=== PATIENT | female | born 1970 | race Caucasian/White ===

== ENCOUNTER 2018-10-11 03:51 | Inpatient (IN) | payer BC ==
[~2018-10-11] VITALS: Ht 165.1 cm; Wt 66.2 kg
[~2018-10-11 03:51] MED LIST: ADVAIR HFA 230M12 GM INH; ATROVENT HFA14 GM INH; DUONEB 2.5-0.5 M3 ML INH; IBUPROFEN 800800 MG PO; LATUDA80 MG PO; LEVAQUIN 750 M750 MG PO; PREDNISONE 10 M10 MG PO; PROVENTIL HFA6.7 G1 INH; ROBAXIN 750 MG750 MG PO; SYMBICORT80 MCG/4.1 INH; VENTOLIN HFA 1818 GM INH; XANAX 0.5 MG0.5 MG PO
[2018-10-11 03:58] VITALS: BP 168/99
[2018-10-11] MEDS ORDERED: PROAIR HFA8.5 GM INH (04:03)
[2018-10-11 04:25] LABS: ABSOLUTE BASOPHILS 0.1 thou/uL (0.0-0.2); ABSOLUTE EOSINOPHILS 0.7 thou/uL (0.0-0.7); ABSOLUTE LYMPHOCYTES 2.4 thou/uL (0.8-5.3); BASOPHILS 0.6 %; EOSINOPHILS 5.4 %; HEMATOCRIT 40.4 % (37.0-47.0); HEMOGLOBIN 13.7 gm/dL (12.0-15.0); LYMPHOCYTES 18.3 %; MCH 31.3 pg (26.0-34.0); MCHC 33.9 g/dL (28.0-37.0); MCV 92.3 fL (80.0-100.0); MONOCYTES 7.5 %; MPV 7.5 fl. (7.2-11.1); NUCLEATED RBCS 0 /100WBC; PLATELET COUNT* 289 thou/uL (150-400); POLYS 68.2 %; RBC 4.38 mil/uL (4.20-5.00); RDW-CV 13.7 % (10.5-14.5); WBC 13.2 thou/uL (4.0-11.0)
[2018-10-11 04:36] LABS: CALCIUM 9.2 mg/dL (8.5-10.1); POTASSIUM 4.2 mmol/L (3.5-5.1)
[2018-10-11 04:46] LABS: ALBUMIN 3.9 g/dL (3.4-5.0); TOTAL BILIRUBIN 0.3 mg/dL (<0.1-1.0); TOTAL PROTEIN 7.3 g/dL (6.4-8.2)
[2018-10-11 07:40] LABS: INFLUENZA A ANTIGEN None Detected (None Detect); INFLUENZA B ANTIGEN None Detected (None Detect)
[2018-10-11 09:00] VITALS: BP 138/87
[2018-10-11 15:04] VITALS: BP 129/88
[2018-10-11 15:35] VITALS: BP 117/70
[2018-10-11 20:00] VITALS: BP 121/74
[2018-10-12 00:05] VITALS: BP 145/99
[2018-10-12 04:17] LABS: HEMATOCRIT 37.2 % (37.0-47.0); HEMOGLOBIN 12.5 gm/dL (12.0-15.0); MCH 31.3 pg (26.0-34.0); MCHC 33.5 g/dL (28.0-37.0); MCV 93.5 fL (80.0-100.0); MPV 7.7 fl. (7.2-11.1); NUCLEATED RBCS 0 /100WBC; PLATELET COUNT* 282 thou/uL (150-400); RBC 3.98 mil/uL (4.20-5.00); WBC 9.9 thou/uL (4.0-11.0)
[2018-10-12 04:30] VITALS: BP 136/79
[2018-10-12 04:34] LABS: CALCIUM 9.2 mg/dL (8.5-10.1); CREATININE 0.8 mg/dL (0.6-1.3); POTASSIUM 4.5 mmol/L (3.5-5.1)
[2018-10-12 07:30] LABS: ABSOLUTE LYMPHOCYTES 1.1 thou/uL (0.8-5.3); ABSOLUTE MONOCYTES 0.7 thou/uL (0.0-1.2); ABSOLUTE NEUTROPHILS 8.1 thou/uL (1.6-8.1); PLATELET ESTIMATE ADEQUATE
[2018-10-12 08:00] VITALS: BP 133/88
[2018-10-12] MEDS ORDERED: VENTOLIN HFA 1818 GM INH (09:39)
[2018-10-12] MEDS ORDERED: IPRAT-ALBUT 0.5-3 ML INH (09:41)
[2018-10-12] MEDS ORDERED: PREDNISONE 10 M10 MG PO (09:45)
[2018-10-12] MEDS ORDERED: CEFDINIR300 MG PO (09:46)
[2018-10-12] MEDS ORDERED: PROTONIX40 M1 PO (09:47)
[2018-10-12 09:50] VITALS: BP 133/88
== END 2018-10-12 10:31 | disposition home or self-care (01) | DRG 193 ==
LOC: M.ERS 03:51 → M.TBA-ER 05:41 → M.3W 15:23
PROVIDERS: Emergency Medicine; Internal Medicine; ADMIT Internal Medicine
DX: J18.9 Pneumonia, unspecified organism (principal); J96.01 Acute respiratory failure with hypoxia; G92 Toxic encephalopathy; J45.901 Unspecified asthma with (acute) exacerbation; J44.1 Chronic obstructive pulmonary disease with (acute) exacerbation; J44.0 Chronic obstructive pulmonary disease with (acute) lower respiratory infection; J20.9 Acute bronchitis, unspecified; F31.9 Bipolar disorder, unspecified; F17.210 Nicotine dependence, cigarettes, uncomplicated; Z28.89 Immunization not carried out for other reason; Z90.710 Acquired absence of both cervix and uterus; Z82.5 Family history of asthma and other chronic lower respiratory diseases

== ENCOUNTER 2018-11-10 08:34 | Inpatient (IN) | payer BC ==
[2018-11-10] VITALS (14 sets, daily range): BP systolic 112–144; BP diastolic 80–110
[~2018-11-10] VITALS: Ht 152.4 cm; Wt 73.0 kg
[~2018-11-10 08:34] MED LIST changes: +CEFDINIR300 MG PO; +IPRAT-ALBUT 0.5-3 ML INH; +PROAIR HFA8.5 GM INH; +PROTONIX40 M1 PO
[2018-11-10 09:48] LABS: BE -4.8 mmol/L (-2 to +3); PCO2 41.9 mmHg (35.0-45.0); pH 7.319 (7.340-7.450)
[2018-11-10 09:53] LABS: ABSOLUTE BASOPHILS 0.1 thou/uL (0.0-0.2); ABSOLUTE EOSINOPHILS 0.6 thou/uL (0.0-0.7); ABSOLUTE LYMPHOCYTES 2.2 thou/uL (0.8-5.3); ABSOLUTE MONOCYTES 0.5 thou/uL (0.0-1.2); ABSOLUTE NEUTROPHILS 6.3 thou/uL (1.6-8.1); BASOPHILS 1.1 %; EOSINOPHILS 6.5 %; HEMOGLOBIN 13.1 gm/dL (12.0-15.0); LYMPHOCYTES 22.6 %; MCH 31.6 pg (26.0-34.0); MCHC 33.5 g/dL (28.0-37.0); MCV 94.4 fL (80.0-100.0); MONOCYTES 5.6 %; MPV 7.6 fl. (7.2-11.1); NUCLEATED RBCS 0 /100WBC; PLATELET COUNT* 321 thou/uL (150-400); POLYS 64.2 %; RBC 4.14 mil/uL (4.20-5.00); RDW-CV 14.1 % (10.5-14.5); WBC 9.7 thou/uL (4.0-11.0)
[2018-11-10 10:00] LABS: APTT 27.9 Seconds (25.0-31.3); PROTIME 10.4 Seconds (9.20-11.50)
[2018-11-10 10:01] LABS: ANION GAP 7 mmol/L (7-16); BUN 13 mg/dL (7-18); CHLORIDE 108 mmol/L (98-107); CO2 26 mmol/L (21-32); CREATININE 0.9 mg/dL (0.6-1.3); GLUCOSE 205 mg/dL (70-99); POTASSIUM 3.9 mmol/L (3.5-5.1); SODIUM 141 mmol/L (136-145)
[2018-11-10 10:16] LABS: ALBUMIN 3.3 g/dL (3.4-5.0); ALKALINE PHOSPHATASE 87 U/L (46-116); LIPASE 62 U/L (73-393); MAGNESIUM 1.9 mg/dL (1.8-2.4); NT-PRO BRAIN NAT PEPTIDE 145 pg/mL (<300); SGOT 36 U/L (15-37); SGPT 26 U/L (30-65); TOTAL BILIRUBIN 0.3 mg/dL (<0.1-1.0); TOTAL PROTEIN 6.3 g/dL (6.4-8.2); TROPONIN-I LEVEL <0.06 ng/mL (<0.06)
--- NOTE | 2018-11-10 10:24 | NUR ---
PROPOFOL TITRATED FROM 10 MG/HR TO 20 MG/HR PER DR ORDERS. CURRENT VITAL SIGNS ARE: HR 142, BP 125/96, O2 SAT 98%.
--- NOTE | 2018-11-10 11:47 | NUR ---
PT WAS TAKEN TO CAT SCAN WITH RN AND RT. PT WAS TAKEN STRAIGHT TO ICU FROM CT SCAN DUE TO RT BEING AVAILABLE AND PRESENT TO HELP TRANSPORT VENTILATOR. BEDSIDE REPORT WAS GIVEN TO TRELL. PT'S BELONGINGS, INCLUDING JEWELRY AND DENTURES WERE TAKEN TO THE PATIENT.
[2018-11-10 15:51] LABS: BE -4.6 mmol/L (-2 to +3); PCO2 42.3 mmHg (35.0-45.0); PO2 105.3 mmHg (75.0-100.0)
--- NOTE | 2018-11-10 16:13 | EKG ---
[place] [address] ELECTROCARDIOGRAM REPORT Name: ONEAL SPENCER Room: [address] ADM IN .R.#: [id number] Admission: 11/10/18 Attend Phys: Amaya Garcia MD Discharge: Date of : 72 Report #: [id number] THIS REPORT FOR: //name// [facility] ED Test Date: 2018-11-10 Test Time: 09:28:00 Pat Name: ONEAL SPENCER Department: Room: [facility] Gender: F Flat Sheet Maker: MS : 1970 Requested By: James Everett Order Number: [id number] MD: Mikael Peralta Measurements Intervals [place] Rate: 136 P: 76 WV: 74 QRS: 49 QRSD: 83 T: 118 QT: 320 QTc: 482 Interpretive Statements Sinus tachycardia Anterior infarct, old Nonspecific T abnormalities, lateral leads No previous ECG available for comparison Electronically Signed On 11-10-2018 16:13:05 WASHING MACHINE LOADER AND PULLER by Mikael Peralta [email or web address] <ELECTRONICALLY SIGNED> By: Mikael Peralta MD, [facility] 11/10/18 1613 7 7 Mikael Peralta MD, FAC /EPI
--- NOTE | 2018-11-10 16:17 | NUR ---
PATIENT ADMITTED TO THE UNIT AT 1145. ARRIVED SEDATED, INTUBATED, AND IN BILATERAL SOFT WRIST RESTRAINTS. PULMONARY HAD ALREADY SEEN PATIENT AND ORDERED REPEAT ABG AT 1500. PATIENT'S AND TWO SONS IN TO SEE PATIENT. ALL QUESTIONS ANSWERED. LEFT SHORTLY AFTER ARRIVAL AND STATED THEY WOULD BE BACK TOMORROW. REPORT GIVEN TO MARE ZAVALETA AT THIS TIME.
--- NOTE | 2018-11-10 18:46 | NUR ---
ASSUMED PATIENT CARE AT 1600. PT SEDATED APPROPRIATLY ON PROPOFOL. VITAL SIGNS STABLE. HAS BEEN UPDATED.
[2018-11-11] VITALS (26 sets, daily range): BP systolic 113–158; BP diastolic 59–121
[2018-11-11 05:41] LABS: HEMATOCRIT 36.9 % (37.0-47.0); HEMOGLOBIN 12.7 gm/dL (12.0-15.0); MCH 31.7 pg (26.0-34.0); MCHC 34.4 g/dL (28.0-37.0); MCV 92.4 fL (80.0-100.0); MPV 7.8 fl. (7.2-11.1); RBC 3.99 mil/uL (4.20-5.00); RDW-CV 14.1 % (10.5-14.5); WBC 9.3 thou/uL (4.0-11.0)
[2018-11-11 06:19] LABS: ALBUMIN 3.2 g/dL (3.4-5.0); CALCIUM 8.6 mg/dL (8.5-10.1); CREATININE 0.9 mg/dL (0.6-1.3); MAGNESIUM 1.7 mg/dL (1.8-2.4); POTASSIUM 4.2 mmol/L (3.5-5.1); TOTAL BILIRUBIN 0.4 mg/dL (<0.1-1.0); TOTAL PROTEIN 6.3 g/dL (6.4-8.2)
[2018-11-11 06:29] LABS: BE -2.9 mmol/L (-2 to +3); PCO2 31.6 mmHg (35.0-45.0); PO2 93.6 mmHg (75.0-100.0); pH 7.427 (7.340-7.450)
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
--- NOTE | 2018-11-11 09:41 | NUR ---
Pt lightly sedated on Propofol; however, pt tends to sit up or contract when coughing. Pt calm with other care and activiities. BP 140s-150s/90s-110s. HR 120s. Paged Dr. Arreola, received orders to reduce rate of IVF from 150 to 75 ml/h. BP improved this am. Propofol at max of 80 mcg/kg/min. Will continue to monitor.
--- NOTE | 2018-11-11 10:40 | NUR ---
PT JUST EXTUBATED, NO FAMILY HERE AT THIS TIME. WILL ASSESS AT LATER TIME.
--- NOTE | 2018-11-11 14:52 | 2DMMODE ---
[place] [address] 2 D/M-MODE ECHOCARDIOGRAM Name: ONEAL SPENCER Room: [address] ADM IN [facility]#: [id number] Admission: 11/10/18 Attend Phys: Amaya Garcia, Discharge: Date of : 72 Date of Service: 11/11/18 1452 Report #: [id number] THIS REPORT FOR: //name// APPROVED REPORT Study performed: 11/11/2018 10:09:39 EXAM: Comprehensive 2D, Doppler, and color-flow Echocardiogram Patient Location: In-Patient Room #: 003 Status: routine BSA: 1.81 HR: 117 bpm BP: 149/104 mmHg Rhythm: NSR Other Information Study Quality: Good Indications Dyspnea 2D Dimensions IVSd: 8.31 (7-11mm) LVOT Diam: 25.94 (18-24mm) LVDd: 55.25 mm PWd: 10.76 (7-11mm) Ascending Ao: 30.90 (22-36mm) LVDs: 44.86 (25-40mm) Volumes Left Atrial Volume (Systole) LA ESV Index: 30.10 mL/m2 Aortic Valve AoV Peak Saeed.: 1.26 m/s AO Peak Gr.: 6.34 mmHg LVOT Max P.24 mmHg AO Mean Gr.: 3.45 mmHg LVOT Mean P.66 mmHg LVOT Max V: 0.90 m/s AO V2 VTI: 19.09 cm LVOT Mean V: 0.60 m/s CONRAD (VTI): 4.86 cm2 LVOT V1 VTI: 17.56 cm Pulmonary Valve PV Peak Saeed.: 0.85 m/s PV Peak Gr.: 2.89 mmHg Tricuspid Valve RAP Estimate: 5.00 [place] [address] 2 D/M-MODE ECHOCARDIOGRAM Name: ONEAL SPENCER ERYN Room: [address] IN .R.#: [id number] Admission: 11/10/18 Attend Phys: Amaya Garcia, Discharge: Date of : 72 Date of Service: 11/11/18 1452 Report #: [id number] TR Peak Gr.: 27.71 mmHg RVSP: 32.00 mmHg PA Pressure: 32.00 mmHg Left Ventricle The left ventricle is normal size. Regional wall motion abnormalities are noted.The entire anterior wall is moderately hypokinetic, involving the apex which is severly hypokinetic.Distal inferior wall is severely hypokinetic . There is normal left ventricular wall thickness. Left ventricular systolic function is moderately decreased. LVEF is 35-40%. The left ventricular diastolic function is normal. Right Ventricle The right ventricle is normal size. The right ventricular systolic function is normal. Atria The left atrium size is normal. The right atrium size is normal. Aortic Valve The aortic valve is normal in structure. No aortic regurgitation is present. There is no aortic valvular stenosis. Mitral Valve The mitral valve is normal in structure. Trace mitral regurgitation. No evidence of mitral valve stenosis. Tricuspid Valve The tricuspid valve is normal in structure. Trace tricuspid regurgitation. Mild pulmonary hypertension. Pulmonic Valve The pulmonary valve is normal in structure. Trace pulmonic regurgitation. Great Vessels The aortic root is normal in size. IVC is normal in size and collapses >50% with inspiration. Pericardium There is no pericardial effusion. <Conclusion> LVEF is 35-40%. Regional wall motion abnormalities are noted.[place] [address] 2 D/M-MODE ECHOCARDIOGRAM Name: ONEAL SPENCER Room: [address] IN [facility]#: [id number] Admission: 11/10/18 Attend Phys: Amaya Garcia, Discharge: Date of : 72 Date of Service: 11/11/18 1452 Report #: [id number] is moderately hypokinetic, involving the apex which is severely hypokinetic.Distal inferior wall is hypokinetic. There is no aortic valvular stenosis. No aortic regurgitation is present. Trace tricuspid regurgitation. Mild pulmonary hypertension. Trace mitral regurgitation. No evidence of mitral valve stenosis. <ELECTRONICALLY SIGNED> By: Noel Trinidad MD, FACC 11/11/18 145 51 51 Noel Trinidad MD, FACC /INF
[2018-11-11 14:58] LABS: BE 2.8 mmol/L (-2 to +3); PCO2 34.4 mmHg (35.0-45.0); pH 7.493 (7.340-7.450)
[2018-11-11 15:01] LABS: PO2 57.3 mmHg (75.0-100.0)
--- NOTE | 2018-11-11 15:01 | NUR ---
O2 TITRATED TO 4L NC FOR CRITICALLY LOW PO2 57.3
--- NOTE | 2018-11-11 17:01 | NUR ---
PATIENT HAS REMAINED FINE SINCE EXTUBATION. PT IS ALERT AND ORIENTED. PT VITALS ARE STABLE. PT REMAINS ON 4 LITERS NASAL CANULA. LOW GRADE FEVERS. PT TURNS SELF IN BED. PT WAS STARTED ON CLEAR LIQUIDS AND IS TOLERATING. PT REPORTS PAIN IN HEAD AND CHEST. PARTIALLY RELIEVED WITH PRN TYLENOL. PT DOES NOT WANT NARCOTICS BECAUSE SHE IS A MEMBER OF [employer]. PT'S WAS PRESENT AND UPDATED ON PLAN OF CARE AND DENIES QUESTIONS.
[2018-11-12] VITALS (12 sets, daily range): BP systolic 115–140; BP diastolic 69–91
[2018-11-12 05:07] LABS: HEMATOCRIT 34.2 % (37.0-47.0); HEMOGLOBIN 11.6 gm/dL (12.0-15.0); MCH 31.4 pg (26.0-34.0); MCV 92.4 fL (80.0-100.0); RBC 3.7 mil/uL (4.20-5.00); WBC 11.1 thou/uL (4.0-11.0)
[2018-11-12 05:19] LABS: CALCIUM 8.9 mg/dL (8.5-10.1); CREATININE 0.7 mg/dL (0.6-1.3); MAGNESIUM 2.1 mg/dL (1.8-2.4); POTASSIUM 3.6 mmol/L (3.5-5.1)
--- NOTE | 2018-11-12 06:18 | NUR ---
Pt very pleasant and conversational, including some phone conversations with family members last night. States she slept well between MN and 0400. Medicated with Tylenol this am per pt request for pain with breathing and coughing to "lungs and abdomen." Reports adequate relief from pain afterwards. T max 99.9 overnight via roman temp probe, but down to 98.1 prior to having roman dc'd at 0610. VSS. Breath snds diminshed with some wheezing. Remains on 4L O2 per NC. Will continue to monitor.
[2018-11-12 09:17] LABS: CHOLESTEROL 213 mg/dL (<200); HDL CHOLESTEROL 93 mg/dL (>40); LDL CHOLESTEROL 104 mg/dL (<100); TC:HDL 2.3 Ratio (Not establshd); TRIGLYCERIDE 80 mg/dL (<150); VLDL 16 mg/dL (<40)
[2018-11-12 09:18] LABS: SERUM ASSESSMENT Clear
--- NOTE | 2018-11-12 10:40 | NUR ---
SPOKE WITH PT. SHE LIVES WITH HER AND HAS BEEN ACTIVE AND INDEP. SHE HAS A NEBULIZER AT HOME BUT IT IS ABOUT 8 YEARS OLD AND ISN'T WORKING WELL ANY LONGER. SHE HAS ALREADY CALLED HER INSURANCE COMPANY AND THEY WILL COVER A NEW NEBULIZER. NURSING NOTIFIED AND THEY WILL GET ORDER FROM DOCTOR FOR NEBULIZER. CASE MGT CAN ARRANGE FOR NEW NEBULIZER ONCE THE ORDER IS OBTAINED. PT DENIES ANY DISCHARGE NEEDS. DISCUSSED ROLE OF CASE MGT, WILL CONTINUE TO FOLLOW.
--- NOTE | 2018-11-12 10:56 | NUR ---
Nutrition: Pt has a TF regimen ordered, but she hwas extubated yday. Eating Heart Healthy diet today. Defer further assessment at this time.
[2018-11-12 12:09] LABS: APTT 24.5 Seconds (25.0-31.3); INR 1.1; PROTIME 10.9 Seconds (9.20-11.50)
--- NOTE | 2018-11-12 15:50 | NUR ---
PATIENT CARE ASSUMED AT 0700. PATIENT REMAINED AOX4, PLEASANT, COOPERATIVE. PATIENT COMPLAINTS OF CHEST PRESSURE RATED 6/10 RELIEVED TO 3/10 WITH PRN TYLENOL. CARDIOLOGY ADJUSTED MEDICATIONS, STARTED ON HEPARIN GTT PER CARDIOLOGY. NEXT APPT SCHEDULED AT 1830. TRACING NSR ON OCEANOGRAPHER GEOLOGICAL WITH ST DEPRESSION. EKG COMPLETED TODAY. PATIENT WILL HAVE HEART CATH TOMORROW. HOSPITALIST DOWNGRADED TO TELE STATUS. SPOKE WITH NNAMDI THOMPSON IN CARDIOLOGY AND CLEARED TO DOWNGRADE. DR DESAI IN THE ROOM DURING TRANSFER TO ASSESS PATIENT. TAKEN UP BY WHEELCHAIR AT 1552. REPORT GIVEN TO MARE JACINTO. ALL QUESTIONS ANSWERED. PATIENT NOTIFIED OF TRANSFER.
--- NOTE | 2018-11-12 16:02 | EKG ---
[place] [address] ELECTROCARDIOGRAM REPORT Name: ONEAL SPENCER ERYN Room: [address] ADM IN M.R.#: [id number] Admission: 11/10/18 Attend Phys: Amaya Garcia MD Discharge: Date of : 72 Report #: [id number] THIS REPORT FOR: //name// [facility] Test Date: 2018-11-12 Test Time: 10:46:44 Pat Name: ONEAL SPENCER Department: Room: [address] Gender: F Staff Respiratory Therapist: : 1970 Requested By: Shannon Jarrell Order Number: [id number] Reading MD: Wilder Mattson Measurements Intervals [place] Rate: 89 P: 65 GA: 135 QRS: 44 QRSD: 86 T: 201 QT: 476 QTc: 580 Interpretive Statements Sinus rhythm Probable left atrial enlargement Repol abnrm, global ischemia, diffuse leads Prolonged QT interval Compared to ECG 11/10/2018 09:28:00 Early repolarization now present Possible ischemia now present Prolonged QT interval now present Sinus tachycardia no longer present Myocardial infarct finding no longer present Electronically Signed On 11-12-2018 16:02:38 ROLLED SEAT TRIMMER by Wilder Mattson [email or web address] <ELECTRONICALLY SIGNED> By: Wilder Mattson MD, [facility] 11/12/18 1602 1046 1046 Wilder Mattson MD, [facility] /EPI
--- NOTE | 2018-11-12 17:02 | NUR ---
PT TRANSFERED FROM ICU THIS AFTERNOON. REPORT RECEIVED FROM LAWSON GARVEY. PT IS AOX4 SR ON COATINGS INSPECTOR. ON 4 L NC AND SATURATION IS 93%. RIGHT JUGULAR LINE IS PATENT. PT IS UP AD JOE. VSS. COARSE LUNGS SOUNDS. HEPARIN DRIP AT 8.75 PER HOUR. COATINGS INSPECTOR ON, TRACING SR WITH ST DEPRESSION. CARDIAC DOCTOR TO SEE PT. DINER PROVIDED. PT TO BE NPO AFTER MIDNIGHT.CALL LIGHT AT REACH. WILL CONTINUE TO MONITOR PT
--- NOTE | 2018-11-12 18:00 | NUR ---
PT HR WAS IN THE 160S AT AROUND 1730. PT DENIES ANY HEART RACING SENSATION. EKG PERFORMED. EKG READ SINUS RYTHM. FR 82. SEE CHART. PT STABLE. PT CONSUMED DINNER. HEPARIN DRIP STILL INFUSING. WILL CONTINUE TO MONITOR.
[2018-11-12 23:07] LABS: GLYCOHEMOGLOBIN (HGB A1C) 5.8 % (4.8-5.6)
[2018-11-13] VITALS (14 sets, daily range): BP systolic 111–136; BP diastolic 66–94
[2018-11-13 02:55] LABS: HEMATOCRIT 34.7 % (37.0-47.0); HEMOGLOBIN 11.7 gm/dL (12.0-15.0); MCH 31.4 pg (26.0-34.0); MCHC 33.8 g/dL (28.0-37.0); MCV 92.8 fL (80.0-100.0); MPV 7.7 fl. (7.2-11.1); RBC 3.74 mil/uL (4.20-5.00); RDW-CV 13.9 % (10.5-14.5); WBC 11.5 thou/uL (4.0-11.0)
[2018-11-13 03:08] LABS: CALCIUM 9.2 mg/dL (8.5-10.1); CREATININE 0.8 mg/dL (0.6-1.3); POTASSIUM 3.6 mmol/L (3.5-5.1)
--- NOTE | 2018-11-13 05:48 | NUR ---
ASSUMED PT CARE AT 1930. PT AWAKE AND ORIENTED X 4. VSS ON 4L OF 02. DENIES ANY CHEST PAIN. TEXTILE SCRAP SALVAGER IN PLACE TRACING SR WITH ST SEGMENT DEPRESSIONS. STILL ON HEPARIN DRIP. CALL LIGHT WITHIN REACH. HOURLY ROUNDING DONE FOR PT SAFETY.
--- NOTE | 2018-11-13 10:10 | NUR ---
ASSUMED PT CARE REPORT RECEIVED FROM NURSE PT IS AOX4 NO PAIN. VSS. SR ON THE CARDAIC MONITOR. IV FLUID INFUSING IN R JUGULAR. HEPARIN DRIP AT 11.67 PER HOUR. NEXT APTT TO BE DRAWNED THIS AM. AWAITNG FOR LAB RESULT. CONSENT SIGNED FOR CARDIAC CATRH SCHEDULED AT 1200/ PT IS TAKING A BED BATH AT THIS TIME. WILL CONTINUE TO MONITOR PT.,
--- NOTE | 2018-11-13 14:21 | NUR ---
ASSUMED PT CARE REPORT RECEIVED FROM NURSE PT IS AOX4 SR ON DATA INTEGRATION DEVELOPER, ON 2 L NC AND BREATHING REGULARLY. LUNG SOUNDS COARSE . PT NPO FOR CARDIAC CATH TODAY. PT LEFT FLOOR FOR CARDIAC CATH AT 1400 ACCOMPANIED BY DATA ENTRY MACHINE OPERATOR NURSE. ON 2 L NC, NEW HEPARIN BAG STARTED AFTER RESULT OF APTT. SEE HEPARIN SHEET IN CHART. PT DONE WITH CARDIAC CATH AT 1425. PT TO COME BACK ON FLOOR SOON WILL CONTINUE TO MONITOR
--- NOTE | 2018-11-13 15:29 | EKG ---
[place] [address] ELECTROCARDIOGRAM REPORT Name: JOSIAHMAKAYLAONEAL ERYN Room: [address] ADM IN M.R.#: [id number] Admission: 11/10/18 Attend Phys: Amaya Garcia MD Discharge: Date of : 72 Report #: [id number] THIS REPORT FOR: //name// [facility] Test Date: 2018-11-12 Test Time: 17:27:15 Pat Name: ONEAL SPENCER Department: Room: [address] Gender: F Parking Technician: : 1970 Requested By: Amaya Garcia Order Number: [id number] Reading MD: Wilder Mattson Measurements Intervals [place] Rate: 82 P: 71 [place]: 128 QRS: 53 QRSD: 85 T: 189 QT: 487 QTc: 569 Interpretive Statements Sinus rhythm LAE, consider biatrial enlargement LVH w/ repol abnormalities, possible ischemia Minimal ST elevation, inferior leads Prolonged QT interval Compared to ECG 11/12/2018 10:46:44 ST (T wave) deviation now present Possible ischemia still present Electronically Signed On 11-13-2018 15:29:40 PICTURE FRAMER by Wilder Mattson [email or web address] <ELECTRONICALLY SIGNED> By: Wilder Mattson MD, [facility] 11/13/18 1529 1727 1727 Wilder Mattson MD, [facility] /EPI
--- NOTE | 2018-11-13 16:26 | NUR ---
PT BACK FROM CARDIAC CATH AT 1430. IV FLUID AT 70 PER HOUR. HEPARIN DRIP STOPPED ORDERED. PT UP AD JOE. R RADIAL AREA IS INTACT NO BLEEDING. VS MONITORING. RESPIRATION IS STABLE. PT RESUME TO PREVIOUS DIET. WILL CONTINUE MONITORING
[2018-11-14] VITALS: BP 134/78
[2018-11-14 04:00] VITALS: BP 115/75
--- NOTE | 2018-11-14 05:08 | NUR ---
PT CARE ASSUMED AT 1930. SAT MAINTAINED IN 3L NC. ALERT AND ORIENTED X4. CALL LIGHT WITHIN REACH AND BED IN LOW POSITION. C/O PAIN, MEDICATION GIVEN PER EMAR. HOURLY ROUNDING DONE FOR PT SAFETY.
[2018-11-14 05:46] LABS: HEMATOCRIT 34.1 % (37.0-47.0); HEMOGLOBIN 11.7 gm/dL (12.0-15.0); MCH 31.7 pg (26.0-34.0); MCHC 34.2 g/dL (28.0-37.0); MCV 92.6 fL (80.0-100.0); MPV 8.4 fl. (7.2-11.1); RBC 3.68 mil/uL (4.20-5.00); RDW-CV 13.9 % (10.5-14.5); WBC 9.4 thou/uL (4.0-11.0)
[2018-11-14 05:58] LABS: CALCIUM 8.7 mg/dL (8.5-10.1); CREATININE 0.7 mg/dL (0.6-1.3); MAGNESIUM 2.1 mg/dL (1.8-2.4); POTASSIUM 3.7 mmol/L (3.5-5.1)
[2018-11-14 08:00] VITALS: BP 136/89
--- NOTE | 2018-11-14 08:00 | NUR ---
ASSUMED CARE OF PT AT 0730. PT RESTING IN BED WAITING FOR BREAKFAST. PT A&0X4, DENIES ANY PAIN OR SHORTNESS OF BREATH AT THIS TIME. PT TRACING SR ON THE BUTCHER'S ASSISTANT. ON 2L NC SAT 92%. PT UP AD JOE IN ROOM. IVF DISCONTINUED. PT GOAL FOR TODAY IS TO TITRATE OXYGEN AND INCREASE ACTIVITY. AM ASSESSMENT CHARTED. MEDICATIONS PER DEC. PT REPOSITIONS SELF. HOURLY ROUNDING OBSERVED. BED IN LOW POSITION. CALL LIGHT WITHIN REACH. WILL CONTINUE PLAN OF CARE.
--- NOTE | 2018-11-14 11:21 | CARD ---
[address] [address] CARDIAC CATH REPORT Name: ONEAL SPENCER Room: [address] IN [facility]#: [id number] Admission: 11/10/18 Attend Phys: Amaya Garcia MD Discharge: Date of : 72 Report #: [id number] THIS REPORT FOR: //name// APPROVED REPORT Study performed: 11/13/2018 12:59:37 Patient Details Patient Status: In-Patient Room #: The patient is a 48 year-old female Event Personnel Wilder Mattson Cargo Bracer, Tarik Franks Gray, Jill RN Receiving Distribution Station Operator, Fletcher Parra (R) Monitor Procedures Performed Left heart catheterization and selective coronary arteriography Indication Abnormal ECG, Heart failure, Cardiomyopathy Risk Factors Hypercholesterolemia Admission/Lab Medications/Medications given during procedure Heparin Unfract. Procedure Narrative The patient was brought electively to the Cardiac Catheterization Laboratory and was prepped and draped in a sterile manner. The right wrist was infiltrated with 2% Lidocaine subcutaneous anesthesia. A Slender Glidesheath sheath was inserted into the right radial artery. Coronary angiography was performed using coronary diagnostic catheters. The right coronary system was accessed and visualized with a Diagnostic catheter. The left coronary system was accessed and visualized with a Diagnostic catheter. The left ventricle was accessed and visualized with a Diagnostic Angled Pig catheter. Left ventricular/Aortic Valve gradient assessed via catheter pullback. Closure device was deployed with a Fr Vasc-Band Reg 24cm. The patient tolerated the procedure well and there were no complications associated with the procedure. There was no hematoma. Intraoperative Conscious Sedation Sedation start time: 13:57 Case end Time: [place] [address] CARDIAC CATH REPORT Name: ONEAL SPENCER Room: [address] IN [facility]#: [id number] Admission: 11/10/18 Attend Phys: Amaya Garcia MD Discharge: Date of : 72 Report #: [id number] 14:22 Fentanyl 50 mcg Versed 2 mg Fluoro Time: 4.4 minutes Dose: DAP 46049 cGycm2 425 mGy Contrast Type and Amount: Visipaque 90 ml Coronary Angiography The patient's coronary anatomy is right dominant. Diagnostic Cath Left Main 0% narrowing LAD 0% narrowing Circumflex 0% narrowing Right Coronary Dominant vessel with 0% narrowing Hemodynamics The aortic pressure is 131/84 mmHg with a mean of 101 mmHg. The left ventricular pressure is 134/9 mmHg with a mean of mmHg. The left ventricular end diastolic pressure is 29 mmHg. There was no gradient across the aortic valve upon pullback. Conclusion #1 normal coronary arteries #2 severe elevation of left ventricular end-diastolic pressure at rest Recommendations Aggressive Medical Therapy Diagnostic Cath Approved by: Wilder Mattson MD Date/Time: 11/14/2018 11:20:16 <ELECTRONICALLY SIGNED> By: Wilder Mattson MD, [facility] 11/14/18 1121 1121 [id number] Mattson MD, [facility] /INF
[2018-11-14 12:00] VITALS: BP 130/90
--- NOTE | 2018-11-14 15:15 | NUR ---
D/C DIE MAKER BENCH STAMPING SENT INITIAL REFERRAL TO [facility] FOR A NEBULIZER AT D/C. THERE IS NOT AN ORDER FOR A NEBULIZER ON THE CHART. RN IN-CHARGE OF THIS PATIENT INFORMED OF THE AND THE NEED TO GET AN ORDER FOR THE NEBULIZER FROM THE PHYSICIAN. PATIENT MAY ALSO NEED HOME O2 AT D/C PENDING R.T. TESTING. CM WILL REMAIN AVIALABLE TO ASSIST AND FOLLOW NEEDED.
[2018-11-14 16:00] VITALS: BP 147/87
--- NOTE | 2018-11-14 18:04 | NUR ---
NO ACUTE CHANGES THROUGHOUT SHIFT. REFER TO CHARTING. PT HAD SHOWER INDEPENDENTLY TODAY. SLOWLY PROGRESSING TOWARDS GOALS. UNABLE TO TITRATE OXYGEN. PT CONTINUES TO BE ON 2L NC SAT 92%. PT UP AD JOE IN ROOM. PT HAD VISITORS THIS EVENING. CONTINUES TO TRACE SR ON THE BALL MACHINE OPERATOR. PT UP AD JOE IN ROOM. POSSIBLE DISCHARGE HOME Saturday11/16/18. MEDICATIONS PER DEC. PT REPOSITIONS SELF. HOURLY ROUNDING OBSERVED. BED IN LOW POSITION. CALL LIGHT WITHIN REACH. WILL CONTINUE PLAN OF CARE.
[2018-11-14 19:45] VITALS: BP 130/88
[2018-11-15] VITALS: BP 125/83
[2018-11-15 04:00] VITALS: BP 135/79
--- NOTE | 2018-11-15 04:46 | NUR ---
PT CARE ASSUMED AT 1930. SAT MAINTAINED IN 2L NC. ALERT AND ORIENTED X4. DENIES SOB AND PAIN. CALL LIGHT WITHIN REACH AND BED IN LOW POSITION. HOURLY ROUNDING DONE FOR PT SAFETY.
[2018-11-15 09:00] VITALS: BP 132/89
[2018-11-15 12:00] VITALS: BP 142/94
[2018-11-15 16:00] VITALS: BP 134/84
--- NOTE | 2018-11-15 17:36 | NUR ---
PATIENT IS ALERT AND ORIENTED VERY PLEASANT. UP AD JOE IN ROOM. VITAL SIGNS HAVE BEEN STABLE ON 2 LITERS OF OXYGEN, UNABLE TO BE WEANED OFF TODAY. TRIPLE LUMEN RIGHT EJ WORKS WELL. NO COMPLAINTS OF PAIN TODAY. FEELING BETTER PER PATIENT. CALL LIGHT IS IN REACH WILL CONTINUE TO MONITOR.
[2018-11-15 20:00] VITALS: BP 140/99
[2018-11-16] VITALS: BP 122/83
[2018-11-16 04:00] VITALS: BP 119/82
--- NOTE | 2018-11-16 04:41 | NUR ---
PT CARE ASSUMED AT 1930. SAT MAINTAINED IN 1.5L NC. ALERT AND ORIENTED X4. CALL LIGHT WITHIN REACH AND BED IN LOW POSITION. DENIES PAIN. SOB WITH EXERTION. HOURLY ROUNDING DONE FOR PT SAFETY.
[2018-11-16 07:30] VITALS: BP 150/93
[2018-11-16 12:00] VITALS: BP 129/90
[2018-11-16 16:00] VITALS: BP 139/90
--- NOTE | 2018-11-16 17:20 | NUR ---
PT ASSESSMENT CHARTED. VSS THROUGHOUT SHIFT. PT UP AD JOE IN ROOM. PAIN RELATED TO CENTRAL LINE BUT NO OTHER PAIN NOTED. OXYGEN TITRATED DOWN TO 0.5L BY NC BUT PATIENT REPORTS THAT SHE GETS SOA WITH ACTIVITY. NO OTHER COMPLAINTS. WILL TRANSFER TO ROOM 105 AFTER DINNER.
--- NOTE | 2018-11-16 18:29 | NUR ---
PT TRANSFER TO ROOM 105 VIA WHEELCHAIR AT 1830. REPORT GIVEN TO NURSE.
--- NOTE | 2018-11-16 18:56 | NUR ---
ASSUMED CARE OF PATIENT AT 1830. AGREE WITH PREVIOUS NURSES CHARTING. ALERT AND ORIENTED X4. UP AD JOE IN ROOM. IV IJ IS PATENT AND SALINE LOCKED. VSS ON 0.5L OF O2. CALL LIGHT IS WITHIN REACH. NURSING WILL CONTINUE TO MONITOR.
[2018-11-16 19:45] VITALS: BP 120/79
--- NOTE | 2018-11-17 05:45 | NUR ---
PT SLEPT MOST OF SHIFT. ASSESSMENT DOCUMENTED. MEDS GIVEN PER E-DEC. IJ PATENT. NO REPORTS OF PAIN OR NAUSEA THIS SHIFT. WILL CONTINUE WITH PLAN OF CARE.
[2018-11-17] MEDS ORDERED: PULMICORT0.5 MG/2 M INH (08:10)
[2018-11-17] MEDS ORDERED: PRINIVIL5 MG PO (08:10)
[2018-11-17] MEDS ORDERED: LEVAQUIN 750 M750 MG PO (08:10)
[2018-11-17] MEDS ORDERED: IPRAT-ALBUT 0.5-3 ML INH (08:10)
[2018-11-17] MEDS ORDERED: ASPIR 8181 MG PO (08:10)
[2018-11-17] MEDS ORDERED: LIPITOR 20 MG T20 M1 PO (08:10)
[2018-11-17] MEDS ORDERED: LASIX 20 MG TAB20 MG PO (08:10)
[2018-11-17] MEDS ORDERED: METOPROLOL SUCC25 M1 PO (08:10)
[2018-11-17] MEDS ORDERED: SINGULAIR 10 MG10 M1 PO (08:10)
[2018-11-17] MEDS ORDERED: PREDNISONE 10 M10 MG PO (08:10)
[2018-11-17] MEDS ORDERED: NEBULIZER MISCELL (08:27)
[2018-11-17 08:30] VITALS: BP 118/64
--- NOTE | 2018-11-17 10:46 | NUR ---
OCCUPATIONAL MEDICINE SPECIALIST INFORMED BT R.T. THAT THE PATIENT WILL NOT NEED HOME O2. D/C IT NETWORK ENGINEER SPOKE TO WANDA WITH [employer] TO INFORM OF THE PATIENT'S D/C AND NEED FOR A NEBULIZER MACHINE FOR HOME USE. WANDA INFORMS THAT THE NEBULIZER MACHINE WILL BE DELIVERED TO THE PATIENT'S HOME. D/C IT NETWORK ENGINEER INFORMED THE PATIENT AND RN IN-CHARGE OF THE PATIENT OF THIS INFO. PATIENT TO D/C HOME TODAY. CM WILL REMAIN AVAILABLE TO ASSIST AND FOLLOW NEEDED.
--- NOTE | 2018-11-17 10:58 | NUR ---
re: CHF medication education. Met with pt to review heart failure medication. Discussion focused on lisinopril and metoprolol. We reviewed rationale for therapy and importance of complying with prescribed regimen. Discussed possible side effects and potential management strategies. Pt expressed understanding of topics discussed. Left medication education sheet with pt. Provided pharmacy contact information for any further questions or issues. thank you.
--- NOTE | 2018-11-17 13:04 | NUR ---
PATIENT DISCHARGED TO HOME AT THIS TIME. RIGHT IJ REMOVED. SCRIPTS AND DISCHARGE INSTRUCTIONS GIVEN. PATIENT DENIES QUESTIONS OR CONCERNS. FLU SHOT PRIOR TO DC PER DR. SAMANO. PATIENT VERBALIZES UNDERSTANDING OF DC INSTRUCTIONS. CARDIOLOGY PRODUCT INSPECTION SUPERVISOR CALLED TO CHANGE APPT FROM 11/19 TO 11/21, PATIENT NOTIFIED. DISCHARGED WITH CHILDREN.
== END 2018-11-17 13:04 | disposition home or self-care (01) | DRG 208 ==
LOC: M.ERS 08:34 → M.ICU 10:28 → M.TBA-ER 10:28 → M.2W 10:28 → M.ICU 11:38 → M.2W 11-12 15:40 → M.ORTHSURG 11-16 18:30
PROVIDERS: Family Medicine; Internal Medicine Pulmonary Disease; Registered Nurse; ADMIT Internal Medicine
PROC: 5A1935Z Respiratory Ventilation, Less than 24 Consecutive Hours (ICD-10-PCS; principal; 2018-11-10)
PROC: 02HV33Z Insertion of Infusion Device into Superior Vena Cava, Percutaneous Approach (ICD-10-PCS; principal; 2018-11-10)
PROC: 0BH17EZ Insertion of Endotracheal Airway into Trachea, Via Natural or Artificial Opening (ICD-10-PCS; principal; 2018-11-10)
PROC: B2151ZZ Fluoroscopy of Left Heart using Low Osmolar Contrast (ICD-10-PCS; 2018-11-14)
PROC: B2111ZZ Fluoroscopy of Multiple Coronary Arteries using Low Osmolar Contrast (ICD-10-PCS; 2018-11-14)
PROC: 4A023N7 Measurement of Cardiac Sampling and Pressure, Left Heart, Percutaneous Approach (ICD-10-PCS; 2018-11-14)
DX: J96.01 Acute respiratory failure with hypoxia (principal); I50.21 Acute systolic (congestive) heart failure; J45.901 Unspecified asthma with (acute) exacerbation; J44.0 Chronic obstructive pulmonary disease with (acute) lower respiratory infection; I11.0 Hypertensive heart disease with heart failure; F31.9 Bipolar disorder, unspecified; R73.9 Hyperglycemia, unspecified; E78.5 Hyperlipidemia, unspecified; I25.5 Ischemic cardiomyopathy; T38.0X5A Adverse effect of glucocorticoids and synthetic analogues, initial encounter; F17.210 Nicotine dependence, cigarettes, uncomplicated; J20.9 Acute bronchitis, unspecified; Z87.440 Personal history of urinary (tract) infections; Y92.89 Other specified places as the place of occurrence of the external cause; Z90.710 Acquired absence of both cervix and uterus; Z87.828 Personal history of other (healed) physical injury and trauma; Z79.899 Other long term (current) drug therapy; Z82.8 Family history of other disabilities and chronic diseases leading to disablement, not elsewhere classified; Z23 Encounter for immunization

== ENCOUNTER 2019-05-18 08:01 | Emergency (ER) | payer OTHER ==
[~2019-05-18] VITALS: Ht 165.1 cm; Wt 78.0 kg
[~2019-05-18 08:01] MED LIST changes: +ASPIR 8181 MG PO; +LASIX 20 MG TAB20 MG PO; +LIPITOR 20 MG T20 M1 PO; +METOPROLOL SUCC25 M1 PO; +NEBULIZER MISCELL; +PRINIVIL5 MG PO; +PULMICORT0.5 MG/2 M INH; +SINGULAIR 10 MG10 M1 PO
[2019-05-18] MEDS ORDERED: POTASSIUM CHLO10 MEQ PO (08:33)
[2019-05-18] MEDS ORDERED: LASIX 20 MG TAB20 MG PO (08:34)
[2019-05-18] MEDS ORDERED: LIPITOR 20 MG T20 M1 PO (08:35)
[2019-05-18] MEDS ORDERED: LEVALBUTER1.25 MG/0. INH (08:36)
[2019-05-18] MEDS ORDERED: VENTOLIN HFA 1818 GM INH (08:37)
[2019-05-18] MEDS ORDERED: PREDNISONE 20 M20 M1 PO (08:37)
[2019-05-18 08:46] VITALS: BP 128/88
== END 2019-05-18 08:46 | disposition home or self-care (01) ==
LOC: M.ERS 08:01
DX: J44.1 Chronic obstructive pulmonary disease with (acute) exacerbation (principal); F31.9 Bipolar disorder, unspecified; I25.2 Old myocardial infarction; I50.9 Heart failure, unspecified; F17.210 Nicotine dependence, cigarettes, uncomplicated; Z90.710 Acquired absence of both cervix and uterus; Z98.890 Other specified postprocedural states

== ENCOUNTER 2019-05-18 14:22 | Inpatient (IN) | payer OTHER ==
[~2019-05-18] VITALS: Ht 152.4 cm; Wt 77.1 kg
[~2019-05-18 14:22] MED LIST changes: +LEVALBUTER1.25 MG/0. INH; +POTASSIUM CHLO10 MEQ PO; +PREDNISONE 20 M20 M1 PO
[2019-05-18 14:30] VITALS: BP 154/88
--- NOTE | 2019-05-18 14:50 | NUR ---
Gennaro AT BEDSIDE FOR NEBULIZER TREATMENT & ABG DRAW.
[2019-05-18 14:53] LABS: HEMATOCRIT 43.8 % (37.0-47.0); HEMOGLOBIN 14.8 gm/dL (12.0-15.0); MCH 30.3 pg (26.0-34.0); MCHC 33.9 g/dL (28.0-37.0); MCV 89.3 fL (80.0-100.0); MPV 7.6 fl. (7.2-11.1); NUCLEATED RBCS 0 /100WBC; PLATELET COUNT* 316 thou/uL (150-400); RDW-CV 13.7 % (10.5-14.5); WBC 6.7 thou/uL (4.0-11.0)
[2019-05-18 15:00] LABS: ANION GAP 12 mmol/L (7-16); APTT 28.9 Seconds (25.0-31.3); BUN 16 mg/dL (7-18); CALCIUM 9.6 mg/dL (8.5-10.1); CHLORIDE 105 mmol/L (98-107); CO2 22 mmol/L (21-32); CREATININE 0.8 mg/dL (0.6-1.3); GLUCOSE 107 mg/dL (70-99); POTASSIUM 4.5 mmol/L (3.5-5.1); PROTIME 9.9 Seconds (9.20-11.50); SODIUM 139 mmol/L (136-145)
[2019-05-18 15:12] LABS: ALBUMIN 4.2 g/dL (3.4-5.0); ALKALINE PHOSPHATASE 98 U/L (46-116); LIPASE 81 U/L (73-393); MAGNESIUM 2.2 mg/dL (1.8-2.4); NT-PRO BRAIN NAT PEPTIDE 126 pg/mL (<300); SGOT 11 U/L (15-37); SGPT 20 U/L (30-65); TOTAL BILIRUBIN 0.3 mg/dL (<0.1-1.0); TROPONIN-I LEVEL <0.06 ng/mL (<0.06)
[2019-05-18 15:40] VITALS: BP 141/95
[2019-05-18 15:40] LABS: ABSOLUTE EOSINOPHILS 0.1 thou/uL (0.0-0.7); ABSOLUTE LYMPHOCYTES 0.8 thou/uL (0.8-5.3); ABSOLUTE NEUTROPHILS 5.8 thou/uL (1.6-8.1); PLATELET ESTIMATE ADEQUATE
[2019-05-18 15:44] LABS: BE 1.4 mmol/L (-2 to +3); PCO2 21.9 mmHg (35.0-45.0); pH 7.596 (7.340-7.450)
[2019-05-18 15:47] LABS: PO2 58.1 mmHg (75.0-100.0)
[2019-05-18 16:17] VITALS: BP 139/91
--- NOTE | 2019-05-18 16:52 | NUR ---
PT ARRIVED TO UNIT ABOUT 1545 FROM ER. PT STABLE. VITALS STABLE. ON 2LO2. BILATERAL WHEEZING HEARD IN LUNGS. IV PATENT. UP AD JOE, PT STEADY. DENIED PAIN. DENIED NAUSEA/VOMITING. CALL LIGHT WITHIN REACH. WILL CONTINUE TO MONITOR.
[2019-05-18 20:55] VITALS: BP 124/86
--- NOTE | 2019-05-19 06:34 | NUR ---
REPORT GIVEN FROM ORTHO NURSE GRIMALDO AT APPROXIMATELY 2130. PATIENT HAS RESTED WELL THROUGHOUT MOST OF THE NIGHT. MEDICATIONS GIVEN ORDERED AND CHARTED. PATIENT INSTRUCTED TO USE CALL LIGHT WHEN NEEDING ASSISTANCE. HOURLY ROUNDS MADE. WILL CONTINUE WITH PLAN OF CARE AND NURSING TO MONITOR.
[2019-05-19 07:10] VITALS: BP 127/78
--- NOTE | 2019-05-19 10:35 | EKG ---
[place] [address] ELECTROCARDIOGRAM REPORT Name: ONEAL SPENCER Room: [address] ADM IN M.R.#: [id number] Admission: 05/18/19 Attend Phys: Rashaad Locke MD Discharge: Date of : 72 Report #: [id number] THIS REPORT FOR: //name// [facility] ED Test Date: 2019-05-18 Test Time: 14:46:31 Pat Name: ONEAL SPENCER Department: Room: [facility] Gender: F Emergency Room Rn: : 1970 Requested By: James Everett Order Number: [id number] MD: Fuad Evans Measurements Intervals [place] Rate: 91 P: 87 [place]: 144 QRS: 65 QRSD: 85 T: 56 QT: 406 QTc: 500 Interpretive Statements Sinus rhythm Borderline prolonged QT interval Compared to ECG 11/12/2018 17:27:15 Possible ischemia no longer present ST (T wave) deviation no longer present Electronically Signed On 05-19-2019 10:35:24 CDT by Fuad Evans [email or web address] <ELECTRONICALLY SIGNED> By: Fuad Evans MD, FACC 05/19/19 1035 1446 [id number] Fuad Evans MD, [facility] /EPI
[2019-05-19 15:37] VITALS: BP 118/88
--- NOTE | 2019-05-19 16:14 | NUR ---
PT.VISITING WITH ROMI HOOPER AND MOM. SHE SAID SHE IS INDEPENDENT AT HOME. ONLY DME IS A NEBULIZER. SHE HAS A LOT OF SUPPORT AND HELP AT HOME, THEIR 4 KIDS LIVE THERE ALONG WITH HER AND . SHE WATCHES SANDIE ALJOVANNY TOO. NO DISCHARGE NEEDS IDENTIFIED.
--- NOTE | 2019-05-19 16:39 | NUR ---
ASSESSMENT COMPLETE. PT ALERT AND ORIENTED X4. IV ABX GIVEN THIS AM. PT GIVEN TYLENOL THIS AM FOR HEADACHE, RELIEF REPORTED. PT IS UP AD JOE WITH STEADY GAIT. VSS, PT IS ON 2L PER NC WITH [place] SATS. PT TOLERATING MEALS, DENIES N/V. SEE ASSESSMENT AND VITALS FOR OTHER DETAILS. CALL LIGHT WITHIN REACH, WILL CONTINUE PLAN OF CARE
[2019-05-19 21:20] VITALS: BP 129/88
[2019-05-20 04:19] LABS: CALCIUM 9.5 mg/dL (8.5-10.1); MAGNESIUM 1.9 mg/dL (1.8-2.4); POTASSIUM 4.1 mmol/L (3.5-5.1)
[2019-05-20 04:56] LABS: HEMATOCRIT 42.1 % (37.0-47.0); HEMOGLOBIN 13.8 gm/dL (12.0-15.0); MCH 29.6 pg (26.0-34.0); MCHC 32.7 g/dL (28.0-37.0); MCV 90.4 fL (80.0-100.0); MPV 8.2 fl. (7.2-11.1); RBC 4.66 mil/uL (4.20-5.00); WBC 14.7 thou/uL (4.0-11.0)
--- NOTE | 2019-05-20 06:24 | NUR ---
PATIENT HAS SLEPT WELL THROUGHOUT THE NIGHT. VSS ON 2L 02 VIA NASAL CANNULA. NO C/O PAIN. MEDICATIONS GIVEN ORDERED AND CHARTED. ASSESSMENT CHARTED. NO C/O SOA. IV IN RIGHT AC-SL. PATIENT INSTRUCTED TO USE CALL LIGHT WHEN NEEDING ASSISTANCE. HOURLY ROUNDS MADE. WILL CONTINUE WITH PLAN OF CARE AND NURSING TO MONITOR.
[2019-05-20 08:00] VITALS: BP 113/86
[2019-05-20 16:00] VITALS: BP 128/88
[2019-05-20 20:30] VITALS: BP 126/81
--- NOTE | 2019-05-21 05:32 | NUR ---
PT ALERT AND ORIENTED. VITALS STABLE RA. MEDS GIVEN ORDERED. PT DENIED ANY PAIN/SOB. HOURLY ROUNDING COMPLETED. WILL CONTINUE TO MONITOR.
[2019-05-21 09:07] VITALS: BP 126/82
[2019-05-21 16:30] VITALS: BP 115/76
--- NOTE | 2019-05-21 19:00 | NUR ---
PATIENT PLEASANT AND COOPERATIVE W/ ASSESS AND CARES THIS SHIFT. AMB INDEP IN RM/HALLS W/ STEADY GAIT. IV CATH SITE NOTED WNL. SUHAIL REG DIET. HRLY ROUDNING DONE. ~MADDIRN
[2019-05-21 21:29] VITALS: BP 121/85
--- NOTE | 2019-05-22 06:36 | NUR ---
PATIENT AMBULATED THROUGH HALLS SEVERAL TIMES. SHE DID HER BREATHING TREATMENTS AND REPORTED IMPROVEMENT AFTER MUCINEX AND PREDISOLONE. NO FEVER OR PAIN REPORTED THROUGH SHIFT. SHE IS AMBULATING WELL AND IMPROVING ON ROOM AIR.
[2019-05-22 08:00] VITALS: BP 178/106
[2019-05-22] MEDS ORDERED: PRINIVIL5 MG PO (09:00)
[2019-05-22] MEDS ORDERED: PREDNISONE 10 M10 M1 PO (09:00)
[2019-05-22] MEDS ORDERED: VENTOLIN HFA 1818 GM INH (09:00)
[2019-05-22] MEDS ORDERED: LIPITOR 20 MG T20 M1 PO (09:00)
[2019-05-22] MEDS ORDERED: SINGULAIR 10 MG10 M1 PO (09:00)
[2019-05-22] MEDS ORDERED: LASIX 20 MG TAB20 MG PO (09:00)
[2019-05-22] MEDS ORDERED: MUCINEX600 MG PO (09:00)
[2019-05-22] MEDS ORDERED: POTASSIUM CHLO10 MEQ PO (09:00)
[2019-05-22] MEDS ORDERED: IPRAT-ALBUT 0.5-3 ML INH (09:00)
[2019-05-22] MEDS ORDERED: PULMICORT0.5 MG/2 M INH (09:00)
[2019-05-22 11:28] VITALS: BP 178/106
--- NOTE | 2019-05-22 12:47 | NUR ---
ASSUMED CARE OF PATIENT AT APPROX 0730. ALERT AND ORIENTED X4. ASSESSMENT COMPLETED AND CHARTED. VSS ON ROOM AIR. NO COMPLAINTS OF PAIN, NAUSEA, OR SOA. PATIENT DISCHARGED AT 1230 WITH ALL PERSONAL BELONGINGS, PRESCRIPTIONS, AND DISCHARGE INFORMATION.
== END 2019-05-22 12:30 | disposition home or self-care (01) | DRG 189 ==
LOC: M.ERS 14:22 → M.ORTHSURG 15:02 → M.TBA-ER 15:02 → M.ORTHSURG 15:46
PROVIDERS: Family Medicine; ADMIT Internal Medicine
DX: J96.01 Acute respiratory failure with hypoxia (principal); J45.901 Unspecified asthma with (acute) exacerbation; J44.1 Chronic obstructive pulmonary disease with (acute) exacerbation; I50.22 Chronic systolic (congestive) heart failure; I25.10 Atherosclerotic heart disease of native coronary artery without angina pectoris; F31.9 Bipolar disorder, unspecified; Z90.710 Acquired absence of both cervix and uterus; I25.2 Old myocardial infarction; Z87.891 Personal history of nicotine dependence; Z79.899 Other long term (current) drug therapy

== ENCOUNTER 2019-06-12 18:54 | Emergency (ER) | payer OTHER ==
[~2019-06-12] VITALS: Ht 165.1 cm; Wt 80.7 kg
[~2019-06-12 18:54] MED LIST changes: +MUCINEX600 MG PO; +PREDNISONE 10 M10 M1 PO
[2019-06-12 19:29] LABS: ABSOLUTE BASOPHILS 0.1 thou/uL (0.0-0.2); ABSOLUTE EOSINOPHILS 0.2 thou/uL (0.0-0.7); ABSOLUTE LYMPHOCYTES 2.1 thou/uL (0.8-5.3); ABSOLUTE MONOCYTES 0.6 thou/uL (0.0-1.2); ABSOLUTE NEUTROPHILS 7.8 thou/uL (1.6-8.1); BASOPHILS 0.7 %; EOSINOPHILS 1.5 %; HEMATOCRIT 41.1 % (37.0-47.0); LYMPHOCYTES 19.7 %; MCV 91.2 fL (80.0-100.0); MONOCYTES 5.5 %; MPV 7.3 fl. (7.2-11.1); NUCLEATED RBCS 0 /100WBC; PLATELET COUNT* 376 thou/uL (150-400); POLYS 72.6 %; RBC 4.51 mil/uL (4.20-5.00); RDW-CV 13.9 % (10.5-14.5); WBC 10.8 thou/uL (4.0-11.0)
[2019-06-12 19:35] LABS: ANION GAP 12 mmol/L (7-16); BUN 10 mg/dL (7-18); CALCIUM 9.2 mg/dL (8.5-10.1); CHLORIDE 101 mmol/L (98-107); CO2 24 mmol/L (21-32); CREATININE 0.8 mg/dL (0.6-1.3); GLUCOSE 91 mg/dL (70-99); POTASSIUM 3.6 mmol/L (3.5-5.1); SODIUM 137 mmol/L (136-145)
[2019-06-12 19:39] LABS: PROTIME 10.1 Seconds (9.20-11.50)
[2019-06-12 19:45] LABS: ALBUMIN 4.2 g/dL (3.4-5.0); ALKALINE PHOSPHATASE 82 U/L (46-116); NT-PRO BRAIN NAT PEPTIDE 49 pg/mL (<300); SGOT 12 U/L (15-37); SGPT 23 U/L (30-65); TOTAL BILIRUBIN 0.6 mg/dL (<0.1-1.0); TOTAL PROTEIN 7.6 g/dL (6.4-8.2); TROPONIN-I LEVEL <0.06 ng/mL (<0.06)
[2019-06-12 21:07] LABS: URINE BILIRUBIN NEGATIVE (Negative); URINE BLOOD NEGATIVE (Negative); URINE CLARITY CLEAR; URINE COLOR YELLOW; URINE GLUCOSE-RANDOM NEGATIVE (Negative); URINE KETONES NEGATIVE (Negative); URINE LEUKOCYTES-REFLEX NEGATIVE (Negative); URINE NITRITE-REFLEX NEGATIVE (Negative); URINE PROTEIN NEGATIVE (Negative); URINE SPECIFIC GRAVITY <= 1.005 (1.005-1.030); URINE UROBILINOGEN 0.2 E.U./dl (0.2-1.0)
[2019-06-12 21:14] LABS: AMP/METHAMP Negative (Negative); BARBITURATES Negative (Negative); BENZODIAZEPINES Negative (Negative); COCAINE Negative (Negative); METHADONE Negative (Negative); OPIATES POSITIVE (Negative); PCP Negative (Negative); THC POSITIVE (Negative)
[2019-06-12] MEDS ORDERED: FLEXERIL PO (21:46)
[2019-06-12] MEDS ORDERED: NORCO 7.5-3251 EACH PO (21:46)
[2019-06-12 21:57] VITALS: BP 105/72
--- NOTE | 2019-06-13 09:54 | EKG ---
[place] [address] ELECTROCARDIOGRAM REPORT Name: ONEAL SPENCER Room: [facility]#: [id number] Admission: 06/12/19 Attend Phys: Discharge: 06/12/19 Date of : 72 Report #: [id number] THIS REPORT FOR: //name// [facility] ED Test Date: 2019-06-12 Test Time: 19:06:50 Pat Name: ONEAL SPENCER Department: Room: Gender: F Special Education Para Professional: ANAIS : 1970 Requested By: Erika Patel Order Number: [id number] MD: Doroteo Kincaid Measurements Intervals [place] Rate: 114 P: 74 RI: 147 QRS: 70 QRSD: 88 T: -2 QT: 359 QTc: 495 Interpretive Statements Sinus tachycardia Biatrial enlargement Borderline prolonged QT interval Compared to ECG 05/18/2019 14:46:31 Atrial abnormality now present Sinus rhythm no longer present Electronically Signed On 06-13-2019 9:54:37 CDT by Doroeto Kincaid [email or web address] <ELECTRONICALLY SIGNED> By: Rozina Kincaid MD, [facility] 06/13/19 0954 [id number] 05 Rozina Kincaid MD, [facility] /EPI
== END 2019-06-12 21:58 | disposition home or self-care (01) ==
LOC: M.ERS 18:54
PROVIDERS: Emergency Medicine
DX: M25.511 Pain in right shoulder (principal); I25.2 Old myocardial infarction; J44.9 Chronic obstructive pulmonary disease, unspecified; F31.9 Bipolar disorder, unspecified; I25.10 Atherosclerotic heart disease of native coronary artery without angina pectoris; I50.20 Unspecified systolic (congestive) heart failure; F17.210 Nicotine dependence, cigarettes, uncomplicated; Z98.890 Other specified postprocedural states

== ENCOUNTER → 2020-05-23 | Outpatient (CLI) | payer OTHER ==
[~2020-05-23] MED LIST changes: +FLEXERIL PO; +NORCO 7.5-3251 EACH PO
== END ==
LOC: M.RAD 09:20
PROVIDERS: ATTEND Nurse Practitioner Family
DX: Z12.31 Encounter for screening mammogram for malignant neoplasm of breast (principal)